=== PATIENT | female | born 1955 | race Caucasian/White ===

== ENCOUNTER 2017-10-17 14:23 | Emergency (ER) | payer BC ==
[~2017-10-17] VITALS: Ht 160 cm; Wt 76.7 kg
[2017-10-17] MEDS ORDERED: KEFLEX500 MG PO (14:47)
[2017-10-17] MEDS ORDERED: ZOFRAN ODT4 MG PO (14:47)
[2017-10-17 16:34] VITALS: BP 161/89
== END 2017-10-17 16:38 | disposition home or self-care (01) ==
LOC: EXP 14:23 → EME 14:23 → EXP 16:38
DX: S81.812A Laceration without foreign body, left lower leg, initial encounter (principal); W18.09XA Striking against other object with subsequent fall, initial encounter
CPT/HCPCS: 73590; 99281; 99284